=== PATIENT | male | born 1940 | race Caucasian/White ===

== ENCOUNTER → 2018-01-01 | Outpatient (CLI) | payer MEDICARE, OTHER ==
--- NOTE | 2018-01-01 16:44 | RAD ---
Left Lower Extremity Venous Doppler Ultrasound Indication: Left tibia fracture. Evaluate for deep venous thrombosis. Comparison: None. Procedure: Color Doppler, spectral Doppler, and grayscale images with and without compression are obtained in the area of the common femoral vein, superficial femoral vein - femoral vein junction, main femoral vein (superficial femoral vein) and popliteal vein. Veins of the proximal calf are also imaged. Findings: There is normal duplex flow, color flow and compressibility of all visualized vein segments. There is no evidence of deep venous thrombosis. Impression: No evidence of left lower extremity deep venous thrombosis. Electronically signed by: Jefferson Baron MD (01/01/2018 4:40 PM) [id number]
== END | disposition home or self-care (01) ==
LOC: US 16:03
PROVIDERS: ATTEND Orthopaedic Surgery
DX: S82.292D Other fracture of shaft of left tibia, subsequent encounter for closed fracture with routine healing (principal); M79.89 Other specified soft tissue disorders; X58.XXXD Exposure to other specified factors, subsequent encounter
CPT/HCPCS: 93971

== ENCOUNTER → 2018-01-18 | Outpatient (CLI) | payer MEDICARE, OTHER ==
--- NOTE | 2018-01-18 14:56 | PCVCIMAG ---
EXAM: LEFT LOWER EXTREMITY ARTERIAL DUPLEX INDICATION: Peripheral Arterial Disease. Leg pain. FINDINGS: Left Leg: Common femoral artery is patent. 80% stenosis origin [place] femoral artery. Note is made patient has had a prior aortobifemoral graft with a left iliac limbs appearing patent. 60-70% stenosis proximal [place] superficial femoral artery. Increased systolic velocity of 548 cm/s mid [place] superficial femoral artery consistent with 95% stenosis. Popliteal artery is patent. Occlusion of the distal anterior tibial artery/dorsalis pedis. Peroneal artery and posterior tibial arteries are patent. IMPRESSION: Previous aortobifemoral graft. 95% stenosis mid left superficial femoral artery. 60-70% stenosis proximal [place] left superficial femoral artery. Occlusion of the distal left anterior tibial artery/dorsalis pedis. These results will be discussed further with the patient's care facility. LOC:OFFICE
== END | disposition home or self-care (01) ==
LOC: PCVCIMAG 12:42
PROVIDERS: ATTEND Internal Medicine Geriatric Medicine
DX: S81.802A Unspecified open wound, left lower leg, initial encounter (principal); I73.9 Peripheral vascular disease, unspecified; X58.XXXA Exposure to other specified factors, initial encounter; Y93.89 Activity, other specified; Y92.89 Other specified places as the place of occurrence of the external cause; Y99.8 Other external cause status
CPT/HCPCS: 93925; 93926

== ENCOUNTER → 2018-01-22 | Outpatient (CLI) | payer MEDICARE, OTHER ==
[~2018-01-22] MED LIST: CLOPIDOGREL BISULFATE 75 MG TABLET ONE; DIAZEPAM 10 MG TABLET. ONE; HEPARIN for SUB-Q USE 5,000 UNIT/ML VIAL. SQ ONE; IODIXANOL 270 MG/ML 100 ML VIAL. ONE; IV NORMAL SALINE 1000ML BAG 1,000 ML ONE; LIDOCAINE 1%/EPI 1:100,000 20 ML VIAL. ONE; MIDAZOLAM HCL/PF 2 MG/2 ML VIAL. ONE; fentaNYL PF VIAL 100 MCG/2 ML VIAL ONE; hydrALAZINE 20 MG/ML VIAL. ONE
--- NOTE | 2018-01-22 11:14 | PCVCINTER ---
EXAM: LEFT LOWER EXTREMITY RUNOFF ANGIOGRAM. INDICATION: Peripheral arterial disease. Nonhealing ulcer left lower extremity. Hypertension. Renal atherosclerosis. No prior catheter based angiographic study is available. A full diagnostic angiogram study is performed today and the decision to intervene is based on this diagnostic study. PROCEDURE: Procedure and risks of angiography intervention is appropriate including limb loss stroke and were discussed with the patient's family and consent obtained. The patient's left groin was prepped in the normal sterile fashion. IV conscious sedation was used throughout procedure with appropriate monitoring from 9:45 AM through 10:45 AM. Ultrasound was used to interrogate the left groin and showed the left common femoral artery to be patent. A permanent spot film was obtained. Under ultrasound guidance antegrade access into the left common femoral artery was obtained and a 5 [place] sheath was placed. Through this a 5 [place] flush catheter was placed and left leg runoff angiography was performed. Catheters and wires removed. Sheath was removed and hemostasis obtained using manual pressure. No immediate complications. FINDINGS: Left leg: The left limb of the aortobifemoral graft has its distal anastomosis with the mid/distal left common femoral artery. The distal most common femoral artery remains patent. The left [place]unda femoral artery is patent. Moderate plaque origin superficial femoral artery results in 60-70% stenosis. The superficial femoral artery then remains patent until its mid portion where there is eccentric plaque resulting in 90% stenosis. The popliteal artery shows good patency. The anterior tibial artery is occluded. The posterior tibial artery is small in size with mild stenosis proximally. The dominant runoff vessel is widely patent peroneal artery which refills the distal anterior tibial artery into a moderate-sized dorsalis pedis. Small plantar arteries are also present. IMPRESSION: 90% stenosis mid [place] left superficial femoral artery. 60-70% stenosis proximal left superficial femoral artery. Because of the patient's aortobifemoral graft contralateral access was not attempted but rather antegrade access. Fortunately due to the patient's body habitus satisfactory antegrade access to allow access to the origin of the left SFA was not possible. I will have the patient return tomorrow for left brachial access for intervention to the left SFA. LOC:[id number]
== END | disposition home or self-care (01) ==
LOC: PCVCINTER 07:50
PROVIDERS: ATTEND Nuclear Medicine Nuclear Cardiology
DX: I70.248 Atherosclerosis of native arteries of left leg with ulceration of other part of lower leg (principal); L97.828 Non-pressure chronic ulcer of other part of left lower leg with other specified severity; I70.1 Atherosclerosis of renal artery; J44.9 Chronic obstructive pulmonary disease, unspecified; K21.9 Gastro-esophageal reflux disease without esophagitis; E78.00 Pure hypercholesterolemia, unspecified; I71.4 Abdominal aortic aneurysm, without rupture; I13.0 Hypertensive heart and chronic kidney disease with heart failure and stage 1 through stage 4 chronic kidney disease, or unspecified chronic kidney disease; N18.3 Chronic kidney disease, stage 3 (moderate); Z86.73 Personal history of transient ischemic attack (TIA), and cerebral infarction without residual deficits; Z79.899 Other long term (current) drug therapy; Z79.82 Long term (current) use of aspirin; Z79.84 Long term (current) use of oral hypoglycemic drugs
CPT/HCPCS: 36245; 75710; 76937; 99152; 99153; C1725; C1769; C1894; J0360; J1644; J2250; J3010; J3490; J7030; Q9967; 37186

== ENCOUNTER → 2018-03-13 | Outpatient (CLI) | payer MEDICARE, OTHER ==
--- NOTE | 2018-03-13 19:45 | PCVCIMAG ---
EXAM: LEFT LOWER EXTREMITY ARTERIAL DUPLEX INDICATION: Peripheral Arterial Disease. Leg pain. Prior aorta bifemoral bypass. Nonhealing ulcer left lower leg. FINDINGS: Left Leg: Mild stenosis common femoral artery distal to the aortobifemoral graft anastomosis. Likely 50% restenosis origin [place] superficial femoral artery. 60-70% restenosis mid superficial femoral artery within the midportion of prior stent. Popliteal artery is patent. Unchanged occlusion anterior tibial artery. Peroneal artery is patent throughout. Posterior tibial artery is diminutive in size particularly in its proximal portion. IMPRESSION: 50% restenosis origin [place] left superficial femoral artery. 60-70% restenosis mid left superficial femoral artery stent. Unchanged occlusion left anterior tibial artery. Proximal left posterior tibial artery diminutive in size. LOC:[id number]
== END | disposition home or self-care (01) ==
LOC: PCVCIMAG 13:00
PROVIDERS: ATTEND Nuclear Medicine Nuclear Cardiology
DX: I73.9 Peripheral vascular disease, unspecified (principal); M79.89 Other specified soft tissue disorders
CPT/HCPCS: 93926

== ENCOUNTER → 2018-05-22 | Outpatient (CLI) | payer MEDICARE, OTHER | END | disposition home or self-care (01) | LOC: PCVCIMAG 11:11 | PROVIDERS: ATTEND Nuclear Medicine Nuclear Cardiology | DX: I73.9 Peripheral vascular disease, unspecified (principal); J44.9 Chronic obstructive pulmonary disease, unspecified; I12.9 Hypertensive chronic kidney disease with stage 1 through stage 4 chronic kidney disease, or unspecified chronic kidney disease; N18.3 Chronic kidney disease, stage 3 (moderate); E78.00 Pure hypercholesterolemia, unspecified; I77.9 Disorder of arteries and arterioles, unspecified; I70.1 Atherosclerosis of renal artery; I71.4 Abdominal aortic aneurysm, without rupture; K21.9 Gastro-esophageal reflux disease without esophagitis; Z87.891 Personal history of nicotine dependence; Z79.899 Other long term (current) drug therapy | CPT/HCPCS: G0463 ==